=== PATIENT | male | born 2005 | race African-American/Black ===

== ENCOUNTER 2025-03-22 15:09 | Emergency (ER) | payer MEDICAID ==
[~2025-03-22] VITALS: Ht 177.8 cm; Wt 82.0 kg
[2025-03-22 15:28] VITALS: O2SAT 99
[2025-03-22] MEDS: SODIUM CHLORIDE 0.9% 1,000 ML IV ONE (16:10)
[2025-03-22] MEDS: METOCLOPRAMIDE HCL 10MG/2ML VIAL IV ONE (16:11)
[2025-03-22] MEDS: KETOROLAC 15MG/ML VIAL IV ONE (16:12)
[2025-03-22] MEDS: DIPHENHYDRAMINE 50MG/ML VIAL IV ONE (16:17)
[2025-03-22 16:48] LABS: CLARITY URINE CLEAR (CLEAR); COLOR URINE YELLOW (YELLOW); GLUCOSE URINE NEGATIVE (NEGATIVE); KETONES URINE TRACE (NEGATIVE); LEUKOCYTE ESTERASE URINE NEGATIVE (NEGATIVE); NITRITE URINE NEGATIVE (NEGATIVE); OCCULT BLOOD URINE NEGATIVE (NEGATIVE); PH URINE 6.0 (4.5-8.0); PROTEIN URINE TRACE (NEGATIVE); SPECIFIC GRAVITY URINE 1.024 (1.005-1.030); UROBILINOGEN URINE 1.0 E.U./dL (0.2-1.0)
[2025-03-22] MEDS ORDERED: IBUP-2030 MT (16:50)
[2025-03-22 16:55] VITALS: BP 114/65; PULSE 80; RESP 14; TEMP 37.1; O2SAT 99
[2025-03-22 17:04] LABS: BACTERIA URINE NONE SEEN; MUCUS URINE 1+ /lpf (NONE/TRACE); RBC URINE NONE SEEN /hpf (0-2); SQUAMOUS EPITHELIAL CELL URINE RARE /lpf (RARE/1+); WBC URINE NONE SEEN /hpf (0-2)
== END 2025-03-22 16:57 | disposition home or self-care (01) ==
LOC: ER 15:09
DX: R51.9 Headache, unspecified (principal); R11.0 Nausea; Z79.899 Other long term (current) drug therapy
CPT/HCPCS: 99285; 96374; 96375; 71045; 96361; 81003; J1885; J1200; J2765; J7030